=== PATIENT | male | born 1960 | race Caucasian/White ===

== ENCOUNTER 2023-05-26 11:21 | Outpatient (CLI) | payer BC, SELFPAY | END 2023-05-26 11:22 | disposition home or self-care (01) | LOC: ANHBWCAUD 11:22 | PROVIDERS: Visit Provider Otolaryngology | DX: H90.3 Sensorineural hearing loss, bilateral (principal) | CPT/HCPCS: 92557; 92567 ==

== ENCOUNTER 2023-07-14 14:00 | Outpatient (RCR) | payer BC, SELFPAY | END 2023-08-18 10:58 | disposition other institution (70) | LOC: ANHBWCAUD 14:00 | PROVIDERS: Visit Provider Otolaryngology | DX: Z46.1 Encounter for fitting and adjustment of hearing aid (principal) | CPT/HCPCS: 99199; V5261 ==

== ENCOUNTER 2024-01-12 09:30 | Outpatient (RCR) | payer BC, SELFPAY | END 2024-01-20 23:59 | disposition home or self-care (01) | LOC: ANHBWCAUD 09:30 | PROVIDERS: Visit Provider Otolaryngology | DX: Z46.1 Encounter for fitting and adjustment of hearing aid (principal) | CPT/HCPCS: 99199 ==